=== PATIENT | male | born 1950 | race Caucasian/White ===

== ENCOUNTER 2016-08-26 09:48 | Emergency (ER) | payer OTHER ==
[~2016-08-26] VITALS: Ht 182.9 cm; Wt 110.0 kg
[2016-08-26 11:47] LABS: EOSINOPHIL (%) 1.6 % (0-5); EOSINOPHIL COUNT 0.1 K/uL (0-0.3); HEMATOCRIT 48.6 % (38.0-50.0); IMMATURE GRANULOCYTE (%) 3.9 % (0.0-0.7); IMMATURE GRANULOCYTE COUNT 0.3 K/uL; INSTRUMENT ABS NEUTROPHIL CT 5.2 K/uL; LYMPHOCYTE COUNT 1.3 K/uL (1.0-2.8); MCH 29.4 PG (29.0-34.0); MCHC 34.2 G/DL (30.0-36.0); MEAN PLAT.VOLUME 11.1 uM^3 (9.0-12.4); MONOCYTE (%) 5.7 % (3-12); MONOCYTE COUNT 0.4 K/uL (0-0.8); NEUTROPHIL (%) 70.5 % (45-76); NEUTROPHIL COUNT 5.2 K/uL (1.8-6.4); PLATELET COUNT 254 K/uL (156-360); RBC DIS.WIDTH-CV 12.6 % (11.8-14.6); RBC DIS.WIDTH-SD 39.4 % (39-53); RED BLOOD COUNT 5.65 M/uL (4.00-5.50); WHITE BLOOD COUNT 7.4 K/uL (4.1-10.2)
[2016-08-26 12:17] LABS: ANION GAP 13 MEQ/L (2-14); CHLORIDE 103 MEQ/L (99-109); GFR ESTIMATE (CALCULATED) > 59 mL/min/; GLUCOSE 174 mg/dL (70-99); SAMPLE HEMOLYSIS CHECK 0; SAMPLE ICTERIC CHECK 0; SAMPLE LIPEMIA CHECK 0; SODIUM 132 MEQ/L (136-147); UREA NITROGEN (BUN) 16 mg/dL (9-23)
[2016-08-26 12:21] LABS: TROP-I INTERPRETATION NEGATIVE; TROPONIN-I < 0.01 ng/mL (0.0-0.30)
[2016-08-26] MEDS ORDERED: PREDNISONE50 MG PO (14:25)
[2016-08-26 14:40] VITALS: BP 118/76
== END 2016-08-26 15:00 | disposition home or self-care (01) ==
LOC: EME 09:48
PROVIDERS: Emergency Medicine
DX: L50.9 Urticaria, unspecified (principal); R94.31 Abnormal electrocardiogram [ECG] [EKG]; Z85.46 Personal history of malignant neoplasm of prostate
CPT/HCPCS: 80048; 84484; 85025; 93005; 99281; 99285; J1200; J2930; J7030; S0028

== ENCOUNTER 2017-09-02 22:01 | Inpatient (IN) | payer OTHER ==
[~2017-09-02] VITALS: Ht 182.9 cm; Wt 108.4 kg
[~2017-09-02 22:01] MED LIST: ALEVE220 MG PO; DECADRON4 M1 PO; FLOMAX0.4 MG PO; KEPPRA1000 MG PO; PREDNISONE50 MG PO; RAYOS5 MG PO; SUPER CALCIUM600 MG PO
[2017-09-03] VITALS (14 sets, daily range): BP systolic 118–151; BP diastolic 69–91
[2017-09-04] VITALS (14 sets, daily range): BP systolic 122–156; BP diastolic 73–98
[2017-09-04] MEDS ORDERED: HYDROCODON-ACE1 EAC7 PO (07:21)
== END 2017-09-04 13:45 | disposition home or self-care (01) | DRG 25 ==
LOC: ENRESERV 22:01 → 2SOUTH 09-03 09:15 → RAD 09-03 10:00 → EDSTATUS 09-03 10:00 → 2SOUTH 09-03 10:00 → ENRESERV 09-03 15:30 → 4WEST 09-03 16:09
PROC: 00B00ZX Excision of Brain, Open Approach, Diagnostic (ICD-10-PCS; principal; 2017-09-03)
DX: C79.31 Secondary malignant neoplasm of brain (principal); G93.6 Cerebral edema; C61 Malignant neoplasm of prostate; Z80.3 Family history of malignant neoplasm of breast; Z80.6 Family history of leukemia; Z80.7 Family history of other malignant neoplasms of lymphoid, hematopoietic and related tissues; Z80.8 Family history of malignant neoplasm of other organs or systems
CPT/HCPCS: 70450; 77021; 86850; 86900; 86901; 87641; 88307; 88331; 88341 TC; 88342 TC; C1713; J0690; J2250; J2405; J3480